=== PATIENT | male | born 1960 | race Caucasian/White ===

== ENCOUNTER → 2018-11-30 | Outpatient (CLI) | payer OTHER | LOC: RAD 09:51 | DX: M77.9 Enthesopathy, unspecified (principal); M25.512 Pain in left shoulder ==

== ENCOUNTER 2023-12-24 08:00 | Outpatient (RCR) | payer BC | END 2023-12-29 | disposition home or self-care (01) | LOC: PT | DX: M19.011 Primary osteoarthritis, right shoulder (principal); Z96.611 Presence of right artificial shoulder joint ==

== ENCOUNTER 2023-12-31 13:00 | Outpatient (RCR) | payer BC | END 2024-01-29 | disposition home or self-care (01) | LOC: PT | DX: M19.011 Primary osteoarthritis, right shoulder (principal); Z96.611 Presence of right artificial shoulder joint ==

== ENCOUNTER 2024-02-01 08:34 | Outpatient (RCR) | payer BC | END 2024-02-28 | disposition home or self-care (01) | LOC: PT | DX: M19.011 Primary osteoarthritis, right shoulder (principal); Z96.611 Presence of right artificial shoulder joint ==

== ENCOUNTER 2024-02-10 13:48 | Outpatient (RCR) | payer MEDICARE | END 2024-02-28 | disposition home or self-care (01) | LOC: OT | DX: M79.641 Pain in right hand (principal) ==

== ENCOUNTER 2024-03-03 09:45 | Outpatient (RCR) | payer MEDICARE | END 2024-03-30 | disposition home or self-care (01) | LOC: OT | DX: M79.641 Pain in right hand (principal) ==

== ENCOUNTER 2024-03-03 10:00 | Outpatient (RCR) | payer BC | END 2024-03-30 | disposition home or self-care (01) | LOC: PT | DX: M19.011 Primary osteoarthritis, right shoulder (principal) ==

== ENCOUNTER 2024-03-31 08:20 | Outpatient (RCR) | payer MEDICARE | END 2024-04-18 14:22 | disposition home or self-care (01) | LOC: OT 08:20 | DX: M79.641 Pain in right hand (principal) ==

== ENCOUNTER 2024-03-31 08:20 | Outpatient (RCR) | payer MEDICARE | END 2024-04-18 14:22 | LOC: PT 08:20 | DX: M19.011 Primary osteoarthritis, right shoulder (principal) ==